=== PATIENT | female | born 1965 | race African-American/Black ===

== ENCOUNTER 2023-06-24 11:50 | Emergency (ER) | payer MEDICAID ==
[~2023-06-24 11:50] MED LIST: DULO20CA18 PO; GABA800T97 PO; IBUP-2030 PO; LIP40 MT; SULF1TAB48 MT; TIZA-191 PO; TIZA2CAP7 PO
[2023-06-24 11:52] VITALS: PULSE 99
[2023-06-24] MEDS ORDERED: IOHEXOL-350 100 ML BOTTLE ONE (23:14)
[2023-06-29] MEDS ORDERED: HYDR-4009 MT (16:40)
[2023-06-30] MEDS ORDERED: LOSA50TA41 MT (19:35)
[2023-07-01] MEDS ORDERED: LOSA50TA41 MT (09:48)
[2023-07-01] MEDS ORDERED: KEPP500 MT (10:10)
== END 2023-06-24 12:10 | disposition left against medical advice (07) ==
LOC: ER 11:50
DX: R51.9 Headache, unspecified (principal); Z53.21 Procedure and treatment not carried out due to patient leaving prior to being seen by health care provider
CPT/HCPCS: 99281; Q9967

== ENCOUNTER 2024-04-05 00:43 | Emergency (ER) | payer MEDICAID ==
[~2024-04-05] VITALS: Ht 172.7 cm; Wt 135.0 kg
[~2024-04-05 00:43] MED LIST changes: +HYDR-4009 MT; +KEPP500 MT; +LOSA50TA41 MT
[2024-04-05 01:06] VITALS: O2SAT 99
[2024-04-05 01:09] VITALS: BP 117/69; PULSE 100; RESP 20; TEMP 98.2; O2SAT 98
[2024-04-05] MEDS ORDERED: ACET-2708 MT (04:28)
[2024-04-05] MEDS: ACETAMINOPHEN 325MG TABLET PO ONE (04:30)
== END 2024-04-05 05:38 | disposition home or self-care (01) ==
LOC: ER 00:57
DX: M25.561 Pain in right knee (principal); Z79.899 Other long term (current) drug therapy; Z90.49 Acquired absence of other specified parts of digestive tract
CPT/HCPCS: 73560; 99283; Z7610; L1830